=== PATIENT | male | born 1950 | race Caucasian/White ===

== ENCOUNTER → 2022-07-08 | Outpatient (CLI) | payer OTHER ==
[2022-07-08 16:06] LABS: African American GFR (CKD) 104.9 (60.0-200.0); Albumin 4.6 g/dL (3.8-4.9); Anion Gap 10.2 mmol/L (10.00-18.00); BUN/Creat Ratio 21.25 Ratio (12.00-20.00); Calcium 9.9 mg/dL (8.7-10.3); Carbon Dioxide 27.8 mmol/L (20.0-27.5); Non-African American GFR(CKD) 90.5 (60.0-200.0); Phosphorus 3.1 mg/dL (2.4-5.1); Potassium 5.4 mmol/L (3.5-5.5)
== END | disposition home or self-care (01) ==
LOC: LABWHC1 08:28
PROVIDERS: ATTEND Internal Medicine
DX: E87.5 Hyperkalemia (principal); I50.22 Chronic systolic (congestive) heart failure
CPT/HCPCS: 36415; 80069